=== PATIENT | male | born 1970 | race Caucasian/White ===

== ENCOUNTER 2021-10-31 10:32 | Emergency (ER) | payer SELFPAY ==
[~2021-10-31] VITALS: Ht 180.3 cm; Wt 81.6 kg
[2021-10-31] MEDS ORDERED: KETOROLAC TROMETHAMINE 30 MG INJ ONE (11:23)
[2021-10-31] MEDS ORDERED: HYDROMORPHONE 1 MG/1 ML DISP.SYRIN ONE (11:23)
[2021-10-31] MEDS ORDERED: ACETAMINOPHEN 325 MG TABLET ONE (11:23)
[2021-10-31] MEDS ORDERED: HYDROMORPHONE 1 MG/1 ML DISP.SYRIN IM ONE (11:30)
[2021-10-31] MEDS ORDERED: KETOROLAC TROMETHAMINE 30 MG INJ IM ONE (11:30)
[2021-10-31] MEDS ORDERED: HYDROCODONE/APAP 5-325MG TABLET PO ONE (11:30)
[2021-10-31] MEDS ORDERED: ACETAMINOPHEN 325 MG TABLET PO ONE (11:30)
[2021-10-31] MEDS ORDERED: HYDROCODONE/APAP 5-325MG TABLET ONE (11:43)
[2021-10-31] MEDS ORDERED: HYDR-3980 PO (12:52)
--- NOTE | 2021-10-31 12:58 | NUR ---
Patient discharged to home in stable condition. Written and verbal after care instructions given. Patient verbalizes understanding of instructions. Stressed follow up or return to ER for worsening s/s.
== END 2021-10-31 13:01 | disposition home or self-care (01) ==
LOC: ER 10:32
DX: M54.9 Dorsalgia, unspecified (principal); Z87.39 Personal history of other diseases of the musculoskeletal system and connective tissue
CPT/HCPCS: 99284; 96372 ×2; J1885; J1170; A4663